=== PATIENT | male | born 1995 | race African-American/Black ===

== ENCOUNTER 2018-12-13 10:36 | Emergency (ER) | payer OTHER ==
[2018-12-13 11:01] VITALS: BP 139/68
--- NOTE | 2018-12-13 11:14 | UC ---
Complaint Male HPI - HPI Summary HPI Summary: concern abut STDs, has no symptoms at the time of the visit denies dysuria , no penile discharge , no fever, no chills has a new sexual partner - History of Current Complaint Chief Complaint: UCGU Stated Complaint: PERSONAL Time Seen by Provider: 12/13/18 11:02 Hx Obtained From: Patient Onset/Duration: Sudden Onset Severity Currently: None Pain Intensity: 0 Location: None Associated Signs And Symptoms: Positive: Negative - Allergies/Home Medications Allergies/Adverse Reactions: Allergies Allergy/AdvReac Type Severity Reaction Status Date / Time No Known Allergies Allergy Verified 12/13/18 10:55 PMH/Surg Hx/FS Hx/Imm Hx Previously Healthy: Yes - Surgical History Surgical History: Yes Surgery Procedure, Year, and Place: RIGHT KNEE SURGERY 08/13/2013-WITH SCREWS - Family History Known Family History: Negative: Diabetes - Social History Alcohol Use: Occasionally Substance Use Type: None Smoking Status (MU): Never Smoked Tobacco Review of Systems All Other Systems Reviewed And Are Negative: Yes Constitutional: Positive: Negative Skin: Positive: Negative Eyes: Positive: Negative ENT: Positive: Negative Respiratory: Positive: Negative Cardiovascular: Positive: Negative Gastrointestinal: Negative: Abdominal Pain Genitourinary: Positive: Negative. Negative: Dysuria, Hematuria, Frequency, Urgency, Vaginal/Penile Burning, Vaginal/Penile Itching, Vaginal/Penile Discharge, Vaginal/Penile Pain, Vaginal/Penile Tenderness Is Patient Immunocompromised?: No Physical Exam Triage Information Reviewed: Yes Appearance: Well-Appearing, No Pain Distress, Well-Nourished Vital Signs: Initial Vital Signs Temp 98.4 F 12/13/18 10:56 Pulse 66 12/13/18 10:56 Resp 16 12/13/18 10:56 BP 139/68 12/13/18 10:56 Pulse Ox 100 12/13/18 10:56 Vital Signs Reviewed: Yes Eye Exam: Normal Eyes: Positive: Conjunctiva Clear ENT: Positive: Normal ENT inspection, Hearing grossly normal, Pharynx normal Neck exam: Normal Neck: Positive: Supple Respiratory: Positive: Chest non-tender, Lungs clear, Normal breath sounds Cardiovascular: Positive: RRR, No Murmur, Pulses Normal Abdominal Exam: Normal Complaint Male Course/Dx - Differential Dx/Diagnosis Provider Diagnosis: Concern about STD in male without diagnosis Discharge ED - Sign-Out/Discharge Documenting (check all that apply): Patient Departure All imaging exams completed and their final reports reviewed: No Studies - Discharge Plan Condition: Stable Disposition: HOME Patient Education Materials: Sexually Transmitted Diseases (ED) Referrals: No Primary Care Phys,NOPCP [Primary Care Provider] - If Needed Additional Instructions: will check for STD please call the office in 2 days for the lab results no need for nay treatment at this time please follow up if having any symptoms including burning with urination , discharge - Billing Disposition and Condition Condition: STABLE Disposition: Home
[2018-12-14 13:26] LABS: Chlamydia trachomatis NAA Negative (Negative); Neisseria gonorrhoeae (GC) NAA Negative (Negative)
[2018-12-15 19:35] LABS: Trichomonas vaginalis SOURCE: Urine (Male Patient)
--- NOTE | 2018-12-16 07:17 | UC ---
- Progress Note Progress Note: Lab report reviewed Trichomonas vaginalis negative Chlamydia trachoma tests and gonorrhea also negative. No change in plan Course/Dx - Diagnoses Provider Diagnoses: Concern about STD in male without diagnosis Discharge ED - Sign-Out/Discharge Documenting (check all that apply): Post-Discharge Follow Up All imaging exams completed and their final reports reviewed: No Studies - Discharge Plan Condition: Stable Disposition: HOME Patient Education Materials: Sexually Transmitted Diseases (ED) Referrals: No Primary Care Phys,NOPCP [Primary Care Provider] - If Needed Additional Instructions: will check for STD please call the office in 2 days for the lab results no need for nay treatment at this time please follow up if having any symptoms including burning with urination , discharge - Billing Disposition and Condition Condition: STABLE Disposition: Home
== END 2018-12-13 11:16 | disposition home or self-care (01) ==
LOC: UCCORT 10:36
DX: Z20.2 Contact with and (suspected) exposure to infections with a predominantly sexual mode of transmission (principal)
CPT/HCPCS: 87491; 87591; 87661; 99201; G0463